=== PATIENT | female | born 1980 | race Caucasian/White ===

== ENCOUNTER 2020-10-19 17:11 | Emergency (ER) | payer MEDICAID, OTHER ==
[~2020-10-19] VITALS: Ht 170.2 cm; Wt 99.8 kg
[2020-10-19] MEDS ORDERED: LORazepam 2MG/ML-1ML VIAL IV ONE ×2 (18:00→18:15)
[2020-10-19] MEDS ORDERED: SODIUM CHLORIDE 0.9% 1,000 ML IV ONE (18:00)
[2020-10-19] MEDS ORDERED: ONDANSETRON HCL 4 MG/2 ML VIAL IV ONE (18:15)
[2020-10-19 18:46] LABS: Basophils # (auto) 0.1 10 ^3/uL (0-0.2); Eosinophils # (auto) 0.3 10 ^3/uL (0-0.8); Hemoglobin 10.5 g/dL (12.2-16.2); Monocytes # (auto) 0.4 10 ^3/uL (0-1.3); White Blood Cell 9.4 10^3/uL (4.4-10.8)
[2020-10-19 18:48] LABS: Basophils % (auto) 0.7 % (0.0-2.0); Eosinophils % (auto) 3.1 % (0.0-7.0); Hematocrit 32.5 % (36.0-46.0); Lymphocytes # (auto) 1.4 10 ^3/uL (0.4-5.4); Lymphocytes % (auto) 15.1 % (10.0-50.0); Mean Corpuscular Hgb Conc. 32.4 g/dL (32.0-36.0); Monocytes % (auto) 4.6 % (0.0-12.0); Neutrophils # (auto) 7.2 10 ^3/uL (1.6-8.6); Neutrophils % (auto) 76.5 % (37.0-80.0); Platelet Count (auto) 330 10^3/uL (140-450); Red Blood Cells 4.06 10^6/uL (4.0-5.20); Red Cell Distribution Width 17.8 % (11.8-14.3)
[2020-10-19 19:04] LABS: Anion Gap 5 (5-15); Blood Urea Nitrogen 12 mg/dL (7-18); Calcium 8.7 mg/dL (8.5-10.1); Carbon Dioxide 26 mmol/L (21-32); Chloride 107 mmol/L (98-107); Glucose 112 mg/dL (74-106); Potassium 3.5 mmol/L (3.5-5.1); Sodium 138 mmol/L (136-145)
[2020-10-19 19:09] LABS: Alanine Aminotransferase 16 U/L (13-56); Alkaline Phosphatase 51 U/L (45-117); Aspartate Aminotransferase 9 U/L (15-37); BUN/Creatinine Ratio 12.8; Bilirubin, Total 0.4 mg/dL (0.2-1.0); GFR African American 84 mL/min; GFR Non-African American 70 mL/min
[2020-10-19 20:27] VITALS: BP 143/92
[2020-10-19] MEDS ORDERED: LORazepam 2MG/ML-1ML VIAL IM ONE (20:30)
[2020-10-19] MEDS ORDERED: HYDR50CA PO (20:51)
== END 2020-10-19 21:11 | disposition home or self-care (01) ==
LOC: ER 17:11
DX: F41.0 Panic disorder [episodic paroxysmal anxiety] (principal); D64.9 Anemia, unspecified
CPT/HCPCS: 36415; 70450; 80053; 84443; 84484; 85025; 93005; 96361; 96372; 96374; 96375; 99285; J2060; J2405; J7030

== ENCOUNTER 2023-08-31 22:46 | Emergency (ER) | payer SELFPAY ==
[~2023-08-31] VITALS: Ht 172.7 cm; Wt 123.4 kg
[~2023-08-31 22:46] MED LIST: HYDR50CA PO
[2023-08-31 23:02] VITALS: BP 150/97; PULSE 90; RESP 16; O2SAT 93
== END 2023-08-31 23:43 | disposition left against medical advice (07) ==
LOC: ER 22:46
DX: R09.81 Nasal congestion (principal); J02.9 Acute pharyngitis, unspecified; H92.09 Otalgia, unspecified ear; Z53.21 Procedure and treatment not carried out due to patient leaving prior to being seen by health care provider